=== PATIENT | female | born 1980 | race Caucasian/White ===

== ENCOUNTER 2018-11-11 20:18 | Emergency (ER) | payer MEDICAID ==
[~2018-11-11] VITALS: Ht 175.3 cm; Wt 86.2 kg
[2018-11-11 20:20] VITALS: BP_SYST 109
[2018-11-11] MEDS ORDERED: NACL 0.9% 1,000 ML IV ONE (20:53)
[2018-11-11] MEDS ORDERED: ONDANSETRON HCL 4 MG/2 ML VIAL IVP ONE (21:00)
[2018-11-11] MEDS ORDERED: KETOROLAC TROMETHAMINE 30 MG VIAL IVP ONE (21:00)
[2018-11-11] MEDS ORDERED: cefTRIAXone 1 GM VIAL IM ONE (21:15)
[2018-11-11] MEDS ORDERED: LIDOCAINE 1%, 20 ML MDV 20 ML ONE (21:32)
[2018-11-11] MEDS ORDERED: MORPHINE 4 MG/ML INJ. SYRINGE IVP ONE (23:00)
[2018-11-11 23:21] VITALS: BP_SYST 109
== END 2018-11-11 23:21 | disposition home or self-care (01) ==
LOC: SED 20:18
DX: S20.221A Contusion of right back wall of thorax, initial encounter (principal); N39.0 Urinary tract infection, site not specified; F17.210 Nicotine dependence, cigarettes, uncomplicated; Z90.49 Acquired absence of other specified parts of digestive tract; Z86.79 Personal history of other diseases of the circulatory system; W22.8XXA Striking against or struck by other objects, initial encounter; Y93.89 Activity, other specified; Y92.89 Other specified places as the place of occurrence of the external cause; Y99.8 Other external cause status
CPT/HCPCS: 71045; 72100; 81002; 81025; 86710; 96372; 96374; 96375; 99284; J0696; J1885; J2001; J2270; J2405; J7030; 36415

== ENCOUNTER 2018-12-01 13:51 | Emergency (ER) | payer MEDICAID ==
[~2018-12-01] VITALS: Ht 167.6 cm; Wt 77.1 kg
--- NOTE | 2018-12-01 13:59 | NUR ---
Patient to ER bed 07 for evaluation. Side rails up.
--- NOTE | 2018-12-01 14:00 | NUR ---
FARNAZ Aponte at bedside examining patient.
[2018-12-01 14:02] VITALS: BP_SYST 129
--- NOTE | 2018-12-01 14:05 | NUR ---
PT AAOx4 ambulated into ED c/o 04/08 pain to L elbow radiating to lower back x 1 hour. Pt denies trauma/loss of sensation. No deformities/active bleeding noted to sites. No other injuries/compaints per pt/noted. Will continue to monitor.
--- NOTE | 2018-12-01 14:06 | NUR ---
Pt requests for another provider. Pt states to VANESSA Levine: "I don't like your bedside manner." VANESSA Levine explained "I do not mean to be rude, I am trying to reason why you can be having pain without any trauma." Pt states "I don't care. You're rude." MD Driver notified. Pt was informed that MD is currently treating critical patients and there may be a longer wait to see an MD. Pt receptive to being seen and treated by VANESSA Levine.
[2018-12-01] MEDS ORDERED: KETOROLAC TROMETHAMINE 60 MG/2 ML VIAL IM ONE (14:15)
--- NOTE | 2018-12-01 14:28 | NUR ---
Radiology at bedside
--- NOTE | 2018-12-01 14:30 | NUR ---
Pt informed she will be receving 60mg Toradol IM, but we will require a urine sample to confirm she is not . Pt yelling at staff "I don't want to. I don't have to pee. I'm not ! It's impossible, I don't have sex! Just give me the medication!" Pt verbally consented to be given Toradol without providing urine sample with the risks of defects that Toradol may give to a woman. Medication administered. Pt tolerated well. No adverse reactions noted.
--- NOTE | 2018-12-01 14:40 | NUR ---
Pt left against medical advice. Pt refused to sign AMA form, yelling "I'm going to a different hospital! I'm not stupid. I'm an alcoholic! I can fucking take Toradol at home! Fuck this! Toradol? Really? I'm leaving!"
--- NOTE | 2018-12-01 14:40 | NUR ---
Xuan [email or web address] in ED - 12/01/18 at 1542 by [email or web address] Pt left against medical advise. Pt refused to sign AMA form, yelling "I'm going to a different hospital! I'm not stupid. I'm an alcoholic! I can fucking take Toradol at home! Fuck this! Toradol? Really? I'm leaving!"
== END 2018-12-01 14:40 | disposition left against medical advice (07) ==
LOC: SED 13:51
DX: M25.522 Pain in left elbow (principal); F17.210 Nicotine dependence, cigarettes, uncomplicated; Z86.79 Personal history of other diseases of the circulatory system
CPT/HCPCS: 73070; 96372; 99283; J1885